=== PATIENT | male | born 1985 | race Caucasian/White ===

== ENCOUNTER 2018-09-20 14:13 | Inpatient (IN) | payer OTHER ==
[2018-09-20 18:28] VITALS: BMI 26.1
--- NOTE | 2018-09-20 19:04 | HP ---
COWS - Scale Resting Pulse: 1= [place] 81-100 Sweatin= Chills/Flushing Restless Observation: 3= Extraneous Movement Pupil Size: 0= Normal to Room Light Bone or Joint Aches: 2= Severe Diffuse Aches Runny Nose/ Eye Tearin= Runny Nose/Eyes GI Upset > 30mins: 1= Stomach Cramp Tremor Observation: 0= None Yawning Observation: 0= None Anxiety or Irritability: 2=Irritable/Anxious Goose Flesh Skin: 0=Smooth Skin COWS Score: 12 CIWA Score - Admission Criteria [facility]ASAS Guidelines: Admission for Medically Managed Detox: Requires at least one of the followin. CIWA greater than 12 2. Seizures within the past 24 hours 3. Delirium tremens within the past 24 hours 4. Hallucinations within the past 24 hours 5. Acute intervention needed for co occurring medical disorder 6. Acute intervention needed for co occurring psychiatric disorder 7. Severe withdrawal that cannot be handled at a lower level of care (continued vomiting, continued diarrhea, abnormal vital signs) requiring intravenous medication and/or fluids 8. Admission ROS [facility] Allergies/Adverse Reactions: Allergies Allergy/AdvReac Type Severity Reaction Status Date / Time No Known Allergies Allergy Verified 09/05/14 16:32 History of Present Illness: pt here requesting detox from heroin use, reports 1.5 bundles/day up to 3 bundles/day , first age of use 22 , latest use use yesterday night , current symptoms as above , IVDU in right UE , needles from the pharmacy, denies sharing, + re-using , abscess & Hep C dx 2 years ago , tx'd w/ [facility] .OD x 1 in 1 yr ago , Narcan by EMS , taken to [facility] Longest sobriety 5 years while incarcerated [id number] , sober x 2 years after release , then relapsed . Denies participation in outpt program. etoh : 3-4 x/week , 1-2 6/pk each time,started drinking alcohol in his teens, denies symptoms if not drinking , denies seizures, blackouts, + drinking & driving. 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 Denies current legal issues . Exam Limitations: No Limitations - Ebola screening Have you traveled outside of the country in the last 21 days: No (N) Have you had contact with anyone from an Ebola affected area: No Have you been sick,other than usual withdrawal symptoms: No Do you have a fever: No - Review of Systems Constitutional: See HPI EENT: reports: Tearing, Nose Congestion, Other (myopia) Respiratory: reports: No Symptoms reported Cardiac: reports: No Symptoms Reported GI: reports: See HPI : reports: No Symptoms Reported Musculoskeletal: reports: Muscle Pain Integumentary: reports: No Symptoms Reported, See HPI Neuro: reports: No Symptoms reported Endocrine: reports: No Symptoms Reported Psychiatric: reports: Orientated x3, Agitated, Anxious (denies current SI / HI) Patient History - Patient Medical History Hx Anemia: No Hx Asthma: No Hx Chronic Obstructive Pulmonary Disease (COPD): No Hx Cancer: No Hx Cardiac Disorders: No Hx Congestive Heart Failure: No Hx Hypertension: No Hx Hypercholesterolemia: No Hx Pacemaker: No HX Cerebrovascular Accident: No Hx Seizures: No Hx Dementia: No Hx Diabetes: No Hx Gastrointestinal Disorders: No Hx Genitourinary Disorders: No Hx Sexually Transmitted Disorders: No Hx Renal Disease (ESRD): No Hx Thyroid Disease: No Hx Human Immunodeficiency Virus (HIV): No Hx Hepatitis C: No Hx Depression: No Hx Suicide Attempt: No Hx Bipolar Disorder: No Hx Schizophrenia: No - Patient Surgical History Past Surgical History: No Anesthesia Reaction: No - PPD History Date: 09/07/14 - Smoking Cessation Smoking history: Current some day smoker Have you smoked in the past 12 months: Yes Aproximately how many cigarettes per day: 2 Hx Chewing Tobacco Use: No Initiated information on smoking cessation: No Family Disease History - Family Disease History Family Disease History: Other: Father (unknown ), Mother (hld ), Brother (2, a & w ), Sister (2, A & w ) Other Family History: no children Admission Physical Exam BHS - Vital Signs Vital Signs: Vital Signs - 24 hr 09/20/18 18:25 Temperature 98.2 F Pulse Rate 81 Respiratory 19 Rate Blood Pressure 137/80 - Physical General Appearance: Yes: Moderate Distress, Alcohol on Breath, Irritable, Anxious HEENTM: Yes: EOMI, Hearing grossly Normal, Normocephalic, Normal Voice, Nasal Congestion Respiratory: Yes: Chest Non-Tender, Lungs Clear, Normal Breath Sounds Neck: Yes: No masses,lesions,Nodules, Trachea in good position Cardiology: Yes: Regular Rhythm, Regular Rate, S1, S2, Tachycardia Abdominal: Yes: Non Tender, Soft Genitourinary: Yes: Within Normal Limits Back: Yes: Normal Inspection Musculoskeletal: Yes: Gait Steady Extremities: Yes: Normal Range of Motion, Non-Tender Neurological: Yes: Fully Oriented, Alert, Motor Strength 5/5 Integumentary: Yes: Track Sharma (R antecubital) - Diagnostic (1) Nicotine dependence Current Visit: Yes Status: Chronic Qualifiers: Nicotine product type: cigarettes (2) Opioid dependence Current Visit: Yes Status: Acute Qualifiers: Substance use status: in withdrawal Qualified Code(s): F11.23 - Opioid dependence with withdrawal (3) Alcohol dependence, episodic drinking behavior Current Visit: Yes Status: Chronic BHS Breath Alcohol Content Breath Alcohol Content: 0.038 Urine Drug Screen - Results Drug Screen Negative: No Urine Drug Screen Results: OPI-Opiates Inpatient Rehab Admission - Rehab Decision to Admit Inpatient rehab admission?: No
[2018-09-20] MEDS ORDERED: IBUPROFEN 400 MG TABLET (FP) PO PRN (19:34)
[2018-09-20] MEDS ORDERED: ACETAMINOPHEN 325 MG TABLET (FP) PO PRN ×2 (19:34)
[2018-09-20] MEDS ORDERED: MAGNESIUM CITRATE 300 ML BOTTLE PO PRN (19:34)
[2018-09-20] MEDS ORDERED: cloNIDine HCL 0.1 MG TABLET PO PRN (19:34)
[2018-09-20] MEDS ORDERED: MELATONIN 5 MG TABLETS PO PRN (19:34)
[2018-09-20] MEDS ORDERED: MENTHOL/PHENOL 1 EACH UD MM PRN (19:34)
[2018-09-20] MEDS ORDERED: MAGNESIUM HYDROX 2400MG/30ML ORAL SUSPENSION 30 ML CUP PO PRN (19:34)
[2018-09-20] MEDS ORDERED: DICYCLOMINE HCL 10 MG CAPSULE PO PRN (19:34)
[2018-09-20] MEDS ORDERED: BISMUTH SUBSALICYLATE 524 MG/30 ML UD PO PRN (19:34)
[2018-09-20] MEDS: THIAMINE HCL 100 MG TABLET (FP) PO SCH (22:22)
[2018-09-20] MEDS ORDERED: METHADONE HCL 10 MG TABLET (FOR DETOX USE ONLY) PO ONE (23:00)
[2018-09-21] MEDS ORDERED: METHADONE HCL 10 MG TABLET (FOR DETOX USE ONLY) PO ONE (10:00)
[2018-09-21] MEDS ORDERED: chlordiazePOXIDE HCL 10 MG CAPSULE PO PRN (10:15)
[2018-09-21] MEDS ORDERED: chlordiazePOXIDE HCL 25 MG CAPSULE PO ONE (10:15)
--- NOTE | 2018-09-21 10:15 | PN ---
S CIWA - CIWA Score Nausea/Vomitin Muscle Tremors: 3 Anxiety: 3 Agitation: 1-Slight > Activity Paroxysmal Sweats: 1-Minimal Palms Moist Orientation: 0-Oriented Tacttile Disturbances: 0-None Auditory Disturbances: 0-None Visual Disturbances: 0-None Headache: 2-Mild CIWA-Ar Total Score: 12 BHS COWS - Scale Resting Pulse: 1= [place] 81-100 Sweatin=Flushed/Facial Moisture Restless Observation: 3= Extraneous Movement Pupil Size: 1= Pupils >than Normal Bone or Joint Aches: 2= Severe Diffuse Aches Runny Nose/ Eye Tearin= Runny Nose/Eyes GI Upset > 30mins: 1= Stomach Cramp Tremor Observation of Outstretched Hands: 1= Tremor [place], Not Seen Yawning Observation: 2= >3x During Session Anxiety or Irritability: 1=Feels Anxious/Irritable Goose Flesh Skin: 3=Piloerection COWS Score: 19 BHS Progress Note (SOAP) Subjective: pt states he feels like he is in withdrawal- COWS 19 this morning and CIWA 12, from both alcohol and heroin. Came in yesterday. Pt was placed only on heroin detox protocol. Admission hx shows that he has been using significant amounts of alcohol every day O Vital Signs - 24 hr 09/20/18 09/20/18 09/21/18 18:25 22:15 07:05 Temperature 98.2 F 98.1 F 97.5 F L Pulse Rate 81 104 H 67 Respiratory 19 18 18 Rate Blood Pressure 137/80 148/82 120/70 09/21/18 09:38 Temperature 97.7 F Pulse Rate 68 Respiratory 16 Rate Blood Pressure 145/83 labs- pending a/p: will start on alcohol in addition to heroin detox protocol
[2018-09-21] MEDS: PRENATAL VITAMINS W/ FOLIC ACID TABLET (FP) PO SCH (10:49)
[2018-09-21] MEDS: chlordiazePOXIDE HCL 25 MG CAPSULE PO SCH ×2 (12:15→22:15)
[2018-09-21 12:35] LABS: HEMOGLOBIN 13.2 GM/dL (11.7-16.9); MCH 31.4 pg (25.7-33.7); MCHC 33.8 g/dl (32.0-35.9); MEAN CELL VOLUME 92.8 fl (80-96); MEAN PLT VOLUME 7.8 fl (7.5-11.1); PLATELET COUNT 284 K/MM3 (134-434); RDW 13.5 % (11.9-15.9); WHITE BLOOD COUNT 6.1 K/mm3 (4.0-10.0)
[2018-09-21] MEDS: MAG HYDROX/AL HYDROX/SIMETH 30 ML UNIT-DOSE CUP PO PRN ×2 (12:44→18:54)
[2018-09-21] MEDS: NICOTINE POLACRILEX 2 MG GUM BUC PRN (12:45)
[2018-09-21 13:09] LABS: ALBUMIN 3.1 g/dl (3.4-5.0); ALK PHOS 94 U/L (45-117); ANION GAP 7 MMOL/L (8-16); BILIRUBIN,TOTAL 0.4 mg/dL (0.2-1); BLOOD UREA NITROGEN 10 mg/dL (7-18); CHLORIDE 103 mmol/L (98-107); CO2 28 mmol/L (21-32); CREATININE 0.6 mg/dL (0.55-1.3); GLUCOSE,RANDOM 82 mg/dL (74-106); POTASSIUM 4.2 mmol/L (3.5-5.1); SGOT/AST 17 U/L (15-37); SGPT/ALT 23 U/L (13-61); SODIUM 139 mmol/L (136-145)
[2018-09-21] MEDS ORDERED: cloNIDine HCL 0.1 MG TABLET PO PRN (19:39)
[2018-09-21] MEDS: THIAMINE HCL 100 MG TABLET (FP) PO SCH (22:20)
[2018-09-22] MEDS: chlordiazePOXIDE HCL 25 MG CAPSULE PO SCH (05:29)
--- NOTE | 2018-09-22 09:15 | PN ---
S CIWA - CIWA Score Nausea/Vomitin Muscle Tremors: 2 Anxiety: 2 Agitation: 2 Paroxysmal Sweats: 1-Minimal Palms Moist Orientation: 0-Oriented Tacttile Disturbances: 1-Very Mild Itch/Numbness Auditory Disturbances: 1-Very Mild Visual Disturbances: 0-None Headache: 2-Mild CIWA-Ar Total Score: 13 BHS COWS - Scale Resting Pulse: 0= [place] 80 or Below Sweatin= Chills/Flushing Restless Observation: 1= Difficult to Sit Still Pupil Size: 1= Pupils >than Normal Bone or Joint Aches: 2= Severe Diffuse Aches Runny Nose/ Eye Tearin= Runny Nose/Eyes GI Upset > 30mins: 2= Nausea/Diarrhea Tremor Observation of Outstretched Hands: 2= Slight Tremor Visible Yawning Observation: 1= 1-2x During Session Anxiety or Irritability: 2=Irritable/Anxious Goose Flesh Skin: 0=Smooth Skin COWS Score: 14 S Progress Note (SOAP) Subjective: alert,irritable,anxious,interrupted sleep,tremor,pain in the body and back Objective: 09/22/18 09:12 Vital Signs Temperature 97.3 F L 09/22/18 06:47 Pulse Rate 55 L 09/22/18 06:47 Respiratory Rate 18 09/22/18 06:47 Blood Pressure 120/66 09/22/18 06:47 O2 Sat by Pulse Oximetry (%) Laboratory Last Values WBC 6.1 K/mm3 (4.0-10.0) 09/21/18 08:00 RBC 4.20 M/mm3 (4.00-5.60) 09/21/18 08:00 Hgb 13.2 GM/dL (11.7-16.9) 09/21/18 08:00 Hct 39.0 % (35.4-49) 09/21/18 08:00 MCV 92.8 fl (80-96) 09/21/18 08:00 MCH 31.4 pg (25.7-33.7) 09/21/18 08:00 MCHC 33.8 g/dl (32.0-35.9) 09/21/18 08:00 RDW 13.5 % (11.9-15.9) 09/21/18 08:00 Plt Count 284 K/MM3 (134-434) 09/21/18 08:00 MPV 7.8 fl (7.5-11.1) 09/21/18 08:00 Sodium 139 mmol/L (136-145) 09/21/18 08:00 Potassium 4.2 mmol/L (3.5-5.1) 09/21/18 08:00 Chloride 103 mmol/L (98-107) 09/21/18 08:00 Carbon Dioxide 28 mmol/L (21-32) 09/21/18 08:00 Anion Gap 7 MMOL/L (8-16) L 09/21/18 08:00 BUN 10 mg/dL (7-18) 09/21/18 08:00 Creatinine 0.6 mg/dL (0.55-1.3) 09/21/18 08:00 Creat Clearance w eGFR 154.23 (>60) 09/21/18 08:00 Random Glucose 82 mg/dL (74-106) 09/21/18 08:00 Calcium 8.0 mg/dL (8.5-10.1) L 09/21/18 08:00 Total Bilirubin 0.4 mg/dL (0.2-1) 09/21/18 08:00 AST 17 U/L (15-37) 09/21/18 08:00 ALT 23 U/L (13-61) 09/21/18 08:00 Alkaline Phosphatase 94 U/L (45-117) 09/21/18 08:00 Total Protein 6.0 g/dl (6.4-8.2) L 09/21/18 08:00 Albumin 3.1 g/dl (3.4-5.0) L 09/21/18 08:00 HIV 1&2 Antibody Screen Negative 09/21/18 08:00 HIV P24 Antigen Negative 09/21/18 08:00 09/22/18 09:13 rpr pending Assessment: 09/22/18 09:14 withdrawal symptom Plan: continue detox
[2018-09-22] MEDS ORDERED: METHADONE HCL 10 MG TABLET (FOR DETOX USE ONLY) PO ONE (10:00)
[2018-09-22] MEDS: PRENATAL VITAMINS W/ FOLIC ACID TABLET (FP) PO SCH (10:14)
[2018-09-22] MEDS: NICOTINE POLACRILEX 2 MG GUM BUC PRN (10:18)
[2018-09-22] MEDS: chlordiazePOXIDE 5 MG CAPSULE PO SCH ×2 (13:31→23:08)
[2018-09-22] MEDS: hydrOXYzine PAMOATE 50 MG CAPSULE (FP) PO PRN (17:50)
[2018-09-22] MEDS: THIAMINE HCL 100 MG TABLET (FP) PO SCH (23:08)
[2018-09-23] MEDS: chlordiazePOXIDE 5 MG CAPSULE PO SCH (05:05)
--- NOTE | 2018-09-23 09:04 | PN ---
S Progress Note (SOAP) Subjective: alert,irritable,interrupted sleep Objective: 09/23/18 09:01 Vital Signs Temperature 97.3 F L 09/23/18 06:00 Pulse Rate 60 09/23/18 06:00 Respiratory Rate 18 09/23/18 06:00 Blood Pressure 102/59 L 09/23/18 06:00 O2 Sat by Pulse Oximetry (%) Assessment: 09/23/18 09:03 withdrawal symptom Plan: continue detox,discharge in am
[2018-09-23] MEDS ORDERED: METHADONE HCL 10 MG TABLET (FOR DETOX USE ONLY) PO ONE (10:00)
[2018-09-23] MEDS: PRENATAL VITAMINS W/ FOLIC ACID TABLET (FP) PO SCH (10:36)
--- NOTE | 2018-09-23 12:31 | PN ---
S Progress Note Note: patient would like to be discharged at 07.00 am on 09/24/18
[2018-09-23] MEDS ORDERED: chlordiazePOXIDE HCL 10 MG CAPSULE PO PRN (13:00)
[2018-09-23] MEDS: chlordiazePOXIDE HCL 10 MG CAPSULE PO SCH ×2 (13:07→23:06)
[2018-09-23] MEDS: METHOCARBAMOL 500 MG TABLET PO PRN ×2 (13:10→20:21)
[2018-09-23] MEDS: hydrOXYzine PAMOATE 50 MG CAPSULE (FP) PO PRN (14:25)
[2018-09-23] MEDS: THIAMINE HCL 100 MG TABLET (FP) PO SCH (23:06)
[2018-09-24] MEDS: chlordiazePOXIDE HCL 10 MG CAPSULE PO SCH (05:57)
[2018-09-24] MEDS ORDERED: METHADONE HCL 5 MG TABLET (FOR DETOX USE ONLY) PO ONE (06:00)
[2018-09-24 07:42] VITALS: BP 152/77; PULSE 73; TEMP 97.3
== END 2018-09-24 06:45 | disposition home or self-care (01) | DRG 773 ==
LOC: YASAS 14:13 → Y3N 21:19 → Y6N 21:48
PROVIDERS: ADMIT Surgery; ATTEND Surgery
PROC: HZ2ZZZZ Detoxification Services for Substance Abuse Treatment (ICD-10-PCS; principal; 2018-09-20)
DX: F11.23 Opioid dependence with withdrawal (principal); F10.230 Alcohol dependence with withdrawal, uncomplicated; F17.213 Nicotine dependence, cigarettes, with withdrawal
CPT/HCPCS: 36415; 80053; 85027; 86593; 87389; J0735